=== PATIENT | male | born 1960 | race Caucasian/White ===

== ENCOUNTER 2024-03-22 11:32 | Emergency (ER) | payer OTHER ==
[2024-03-22 11:51] VITALS: BP 170/91; O2SAT 99
--- NOTE | 2024-03-22 11:56 | ED Physician Documentation ---
History of Present Illness - Stated complaint Stated Complaint: LT HAND INJURY - Chief complaint Chief Complaint: General - History obtained from History obtained from: Patient - Additonal information Additional information: Right-handed gentleman who is up-to-date on tetanus has a fishhook embedded in the left finger from just prior to arrival that he could not get out. PD PAST MEDICAL HISTORY - Past Medical History Past Medical History: Yes - Past Surgical History Past Surgical History: Yes - Present Medications Home Medications: Ambulatory Orders Medication Instructions Recorded Confirmed Doxycycline [Vibramycin] 100 mg PO BID #10 tablet 03/22/24 - Allergies Allergies/Adverse Reactions: Allergies Allergy/AdvReac Type Severity Reaction Status Date / Time NSAIDS (Non-Steroidal Allergy Unknown Verified 03/22/24 11:46 Anti-Inflamma - Social History Does the pt smoke?: No Smoking Status: Never smoker Does the pt drink ETOH?: Yes ETOH Use: Beer Does the pt have substance abuse?: No - Immunizations Immunizations are current?: Yes - POLST Patient has POLST: No PD ED PE NORMAL - Vitals Vital signs reviewed: Yes - General General: Alert and oriented X 3, No acute distress - Extremities Extremities: Other (On the palmar side of the left index finger there is a fishhook embedded in the soft tissue with the entrance near the DIP. Normal distal neurovascular status.) - Neuro Neuro: Alert and oriented X 3 - Psych Psych: Normal mood, Normal affect Results - Vitals Vitals: Vital Signs - 24 hr 03/22/24 11:46 Temperature 36.4 C L Heart Rate 66 Respiratory 18 Rate Blood Pressure 170/91 H O2 Saturation 99 Oxygen O2 Source Room air Procedures - FB removal FB location: Subcutaneous FB removal preparation: Local anesthesia-specify (I digital block was done in standard fashion to the left index finger and after an appropriate length of time the fishhook was removed with traction and an 18-gauge needle over the sukhdeep. 5.) Departure - Departure Disposition: 01 Home, Self Care Clinical Impression: [place] injury to finger Qualifiers: Encounter type: initial encounter Laterality: left Qualified Code(s): S69.92XA - Unspecified injury of left wrist, hand and finger(s), initial encounter Condition: Good Record reviewed to determine appropriate education?: Yes Instructions: ED Puncture Wound Fish Hook Removed Prescriptions: Doxycycline [Vibramycin] 100 mg PO BID #10 tablet Comments: I sent your prescription electronically to [facility] in [place] at [address] Keep an eye out for signs of infection and return or go to your close or ER for redness, swelling, drainage, increased pain. Forms: PCP List
[2024-03-22] MEDS: DOXYCYCLINE 100 MG TABLET PO STA (12:21)
== END 2024-03-22 12:32 | disposition home or self-care (01) ==
LOC: ED 11:32
DX: S60.459A Superficial foreign body of unspecified finger, initial encounter (principal); W22.8XXA Striking against or struck by other objects, initial encounter
CPT/HCPCS: 99283; A9270